=== PATIENT | male | born 1960 | race Caucasian/White ===

== ENCOUNTER 2018-11-24 17:50 | Emergency (ER) | payer OTHER ==
[2018-11-24 19:32] VITALS: BP 145/83; TEMP 98; O2SAT 97
== END 2018-11-24 19:31 | disposition home or self-care (01) ==
LOC: ER 17:50
DX: S50.11XA Contusion of right forearm, initial encounter (principal); S80.811A Abrasion, right lower leg, initial encounter; S80.812A Abrasion, left lower leg, initial encounter; W18.30XA Fall on same level, unspecified, initial encounter; Y92.814 Boat as the place of occurrence of the external cause